=== PATIENT | male | born 1975 | race Caucasian/White ===

== ENCOUNTER 2016-08-06 09:49 | Inpatient (IN) | payer OTHER ==
[~2016-08-06] VITALS: Ht 193 cm; Wt 118.2 kg
[2016-08-06] MEDS ORDERED: ACTOS30 MG PO (10:22)
[2016-08-06] MEDS ORDERED: GLUCOPHAGE1000 MG PO (10:22)
[2016-08-06 10:57] LABS: ADJUSTED CALCIUM 9.1 mg/dL (8.4-10.2); ALBUMIN 4.3 gm/dL (3.5-5.0); BILIRUBIN,TOTAL 1.2 mg/dL (0.0-1.0); C-REACTIVE PROTEIN 4.7 mg/dL (0.0-0.9); CALCIUM 9.3 mg/dL (8.4-10.2); CREATININE, serum 0.85 mg/dL (0.66-1.25); POTASSIUM 4.2 mmol/L (3.4-5.0); TOTAL PROTEIN 7.2 gm/dL (6.4-8.2)
[2016-08-06 11:02] LABS: BASO % 0.5 % (0.0-2.0); EOS # 0.2 (0.0-0.7); EOS % 3.3 % (0-4.0); GRAN # 3.9 (1.4-6.5); GRAN % 61.2 % (42.2-75.2); HEMATOCRIT 41.6 % (42.0-52.0); HEMOGLOBIN 14.1 g/dl (13.5-18.0); LYMPH # 1.5 (1.2-3.4); MEAN CELL VOLUME 78 fl (80.0-100.0); MEAN CORPUSCULAR HEMOGLOBIN 26 pg (27.0-31.0); MEAN CORPUSCULAR HGB CONC 34 g/dl (33.0-37.0); MONO # 0.7 (0.1-0.6); MONO % 10.7 % (1.7-9.3); PLATELET COUNT 201 K/mm3 (130-400); RED BLOOD COUNT 5.34 M/mm3 (4.20-5.60); REDCELL DISTRIBUTION WIDTH-CV 12.6 % (11.5-14.5); WHITE BLOOD COUNT 6.4 K/mm3 (4.8-10.8)
[2016-08-06 21:10] VITALS: BP 126/77; PULSE 72; TEMP 98.1
[2016-08-07 01:30] VITALS: BP 107/63; PULSE 85; TEMP 97.7
[2016-08-07 06:39] VITALS: BP 123/73; PULSE 67; TEMP 98.2
[2016-08-07 09:00] VITALS: BP 126/84; PULSE 62; TEMP 97.8
[2016-08-07 14:40] VITALS: BP 122/73; PULSE 70; TEMP 98.3
[2016-08-07 17:36] VITALS: BP 121/72; PULSE 59; TEMP 98.4
[2016-08-07 22:00] VITALS: BP 129/80; PULSE 79; TEMP 97.8
[2016-08-08 04:38] VITALS: BP 100/58; PULSE 59; TEMP 97.5
[2016-08-08 07:52] LABS: BASO # 0.1 (0.0-0.2); EOS # 0.3 (0.0-0.7); GRAN # 2.7 (1.4-6.5); GRAN % 51.8 % (42.2-75.2); HEMATOCRIT 41.2 % (42.0-52.0); HEMOGLOBIN 13.5 g/dl (13.5-18.0); LYMPH # 1.7 (1.2-3.4); LYMPH % 32.8 % (20.0-51.0); MEAN CELL VOLUME 81 fl (80.0-100.0); MEAN CORPUSCULAR HEMOGLOBIN 26 pg (27.0-31.0); MEAN CORPUSCULAR HGB CONC 33 g/dl (33.0-37.0); MEAN PLATELET VOLUME 9.8 fl (7.4-10.4); MONO # 0.5 (0.1-0.6); MONO % 8.8 % (1.7-9.3); PLATELET COUNT 217 K/mm3 (130-400); RED BLOOD COUNT 5.12 M/mm3 (4.20-5.60); REDCELL DISTRIBUTION WIDTH-CV 12.7 % (11.5-14.5); WHITE BLOOD COUNT 5.2 K/mm3 (4.8-10.8)
[2016-08-08 08:08] LABS: C-REACTIVE PROTEIN 2.3 mg/dL (0.0-0.9); CREATININE, serum 0.94 mg/dL (0.66-1.25); POTASSIUM 4.5 mmol/L (3.4-5.0)
[2016-08-08 08:44] LABS: ADD PATHOLOGY DIFF REVIEW NO
[2016-08-08 10:02] VITALS: BP 119/75; PULSE 58; TEMP 98.1
[2016-08-08 13:40] LABS: BAND 2 % (0-10); EOSINOPHIL 4 % (0-4); NEUTROPHILS 53 % (42.0-75.2); PLATELET ESTIMATE NORMAL (NORMAL); TOTAL CELLS COUNTED 100
[2016-08-08 13:48] VITALS: BP 117/72; PULSE 55; TEMP 97.9
[2016-08-08 17:16] VITALS: BP 129/82; PULSE 64
[2016-08-08 22:01] VITALS: BP 109/71; PULSE 73; TEMP 98.2
[2016-08-09 05:24] VITALS: BP 106/69; PULSE 86; TEMP 98.3
[2016-08-09 07:11] LABS: HEMATOCRIT 41.3 % (42.0-52.0); HEMOGLOBIN 13.7 g/dl (13.5-18.0); MEAN CELL VOLUME 80 fl (80.0-100.0); MEAN CORPUSCULAR HEMOGLOBIN 27 pg (27.0-31.0); MEAN CORPUSCULAR HGB CONC 33 g/dl (33.0-37.0); MEAN PLATELET VOLUME 9.8 fl (7.4-10.4); PLATELET COUNT 224 K/mm3 (130-400); RED BLOOD COUNT 5.17 M/mm3 (4.20-5.60); REDCELL DISTRIBUTION WIDTH-CV 12.7 % (11.5-14.5); WHITE BLOOD COUNT 5.7 K/mm3 (4.8-10.8)
[2016-08-09 07:18] LABS: C-REACTIVE PROTEIN 1.6 mg/dL (0.0-0.9); CALCIUM 9.1 mg/dL (8.4-10.2); CREATININE, serum 0.83 mg/dL (0.66-1.25); POTASSIUM 4.4 mmol/L (3.4-5.0)
[2016-08-09 08:03] LABS: ADD PATHOLOGY DIFF REVIEW NO
[2016-08-09 10:00] VITALS: BP 117/68; PULSE 71; TEMP 97.7
[2016-08-09 10:40] LABS: BAND 5 % (0-10); EOSINOPHIL 5 % (0-4); NEUTROPHILS 54 % (42.0-75.2); PLATELET ESTIMATE NORMAL (NORMAL); TOTAL CELLS COUNTED 100
[2016-08-09] MEDS ORDERED: ROCEPHIN 2GM VIAL21 IV (11:40)
[2016-08-29] MEDS ORDERED: LEVEMIR100 U/ML SQ (09:58)
== END 2016-08-09 13:11 | disposition home or self-care (01) | DRG 638 ==
LOC: COL.ER 09:49 → SURG 12:22
PROVIDERS: Physician Assistant
PROC: 02HV33Z Insertion of Infusion Device into Superior Vena Cava, Percutaneous Approach (ICD-10-PCS; principal; 2016-08-08)
DX: E11.621 Type 2 diabetes mellitus with foot ulcer (principal); L03.116 Cellulitis of left lower limb; M86.9 Osteomyelitis, unspecified; E11.40 Type 2 diabetes mellitus with diabetic neuropathy, unspecified; E11.65 Type 2 diabetes mellitus with hyperglycemia; E11.69 Type 2 diabetes mellitus with other specified complication; F17.220 Nicotine dependence, chewing tobacco, uncomplicated; L97.521 Non-pressure chronic ulcer of other part of left foot limited to breakdown of skin; Z79.84 Long term (current) use of oral hypoglycemic drugs
CPT/HCPCS: 99222-AI; 99232-AI; 99239; A9585; C1751; C1894; J0696; J1644; J1650; J1815; J2543; J3370; J7040; J7050

== ENCOUNTER 2016-09-19 10:30 | Outpatient (RCR) | payer OTHER ==
[2016-08-10 10:27] VITALS: BP 118/72; PULSE 82; TEMP 97.8
[2016-08-11 08:40] VITALS: BP 110/71; PULSE 64; TEMP 97.9
[2016-08-12 08:09] VITALS: BP 121/71; PULSE 62; TEMP 97.2
[2016-08-13 10:00] VITALS: BP 115/79; PULSE 87; TEMP 98
[2016-08-14 10:13] VITALS: BP 109/74; PULSE 84; TEMP 98.1
[2016-08-15 10:36] VITALS: BP 108/66; PULSE 81; TEMP 98.3
[2016-08-16 10:00] VITALS: BP 108/70; PULSE 84; TEMP 97.6
[2016-08-16 10:19] LABS: HEMATOCRIT 41.5 % (42.0-52.0); HEMOGLOBIN 14.1 g/dl (13.5-18.0); MEAN CELL VOLUME 79 fl (80.0-100.0); MEAN CORPUSCULAR HEMOGLOBIN 27 pg (27.0-31.0); MEAN CORPUSCULAR HGB CONC 34 g/dl (33.0-37.0); PLATELET COUNT 191 K/mm3 (130-400); RED BLOOD COUNT 5.28 M/mm3 (4.20-5.60); REDCELL DISTRIBUTION WIDTH-CV 12.7 % (11.5-14.5); WHITE BLOOD COUNT 4.9 K/mm3 (4.8-10.8)
[2016-08-16 10:43] LABS: ADJUSTED CALCIUM 9.2 mg/dL (8.4-10.2); ALANINE AMINOTRANSFERASE 95 U/L (21-72); ALBUMIN 4.3 gm/dL (3.5-5.0); ALKALINE PHOSPHATASE 54 U/L (50-136); ANION GAP 15 mmol/L (7-16); BILIRUBIN,TOTAL 1.1 mg/dL (0.0-1.0); BLOOD UREA NITROGEN 17 mg/dL (9-20); CALCIUM 9.4 mg/dL (8.4-10.2); CARBON DIOXIDE 23 mmol/L (22-30); CHLORIDE 100 mmol/L (98-107); CREATININE, serum 0.86 mg/dL (0.66-1.25); GLUCOSE 160 mg/dL (74-106); POTASSIUM 4.4 mmol/L (3.4-5.0); SODIUM 138 mmol/L (137-145); TOTAL PROTEIN 7.5 gm/dL (6.4-8.2)
[2016-08-16 10:46] LABS: C-REACTIVE PROTEIN < 0.5 mg/dL (0.0-0.9)
[2016-08-16 11:23] LABS: ERYTHROCYTE SEDIMENTATION RATE 6 mm/hr (0-15)
[2016-08-17 10:21] VITALS: BP 112/68; PULSE 80; TEMP 98
[2016-08-18 08:07] VITALS: BP 113/74; PULSE 70; TEMP 97.4
[2016-08-19 08:19] VITALS: BP 118/79; PULSE 71; TEMP 97.4
[2016-08-20 09:55] VITALS: BP 123/74; PULSE 67; TEMP 97.4
[2016-08-21 10:01] VITALS: BP 105/66; PULSE 75; TEMP 97.9
[2016-08-23 10:08] VITALS: BP 105/66; PULSE 77; TEMP 98.6
[2016-08-23 10:21] LABS: HEMATOCRIT 40.8 % (42.0-52.0); HEMOGLOBIN 13.7 g/dl (13.5-18.0); MEAN CELL VOLUME 80 fl (80.0-100.0); MEAN CORPUSCULAR HEMOGLOBIN 27 pg (27.0-31.0); MEAN CORPUSCULAR HGB CONC 34 g/dl (33.0-37.0); MEAN PLATELET VOLUME 10.1 fl (7.4-10.4); PLATELET COUNT 175 K/mm3 (130-400); RED BLOOD COUNT 5.13 M/mm3 (4.20-5.60); REDCELL DISTRIBUTION WIDTH-CV 12.6 % (11.5-14.5); WHITE BLOOD COUNT 3.6 K/mm3 (4.8-10.8)
[2016-08-23 10:38] LABS: ADJUSTED CALCIUM 9.6 mg/dL (8.4-10.2); ALANINE AMINOTRANSFERASE 74 U/L (21-72); ALBUMIN 4.3 gm/dL (3.5-5.0); ALKALINE PHOSPHATASE 51 U/L (50-136); ANION GAP 12 mmol/L (7-16); BILIRUBIN,TOTAL 0.9 mg/dL (0.0-1.0); BLOOD UREA NITROGEN 17 mg/dL (9-20); CALCIUM 9.8 mg/dL (8.4-10.2); CARBON DIOXIDE 25 mmol/L (22-30); CHLORIDE 101 mmol/L (98-107); CREATININE, serum 0.84 mg/dL (0.66-1.25); GLUCOSE 177 mg/dL (74-106); POTASSIUM 4.3 mmol/L (3.4-5.0); SODIUM 138 mmol/L (137-145); TOTAL PROTEIN 7.2 gm/dL (6.4-8.2)
[2016-08-23 10:41] LABS: C-REACTIVE PROTEIN < 0.5 mg/dL (0.0-0.9)
[2016-08-23 11:17] LABS: ERYTHROCYTE SEDIMENTATION RATE 8 mm/hr (0-15)
[2016-08-24 09:43] VITALS: BP 117/67; PULSE 69; TEMP 98.4
[2016-08-25 07:37] VITALS: BP 128/72; PULSE 74; TEMP 97.8
[2016-08-26 07:34] VITALS: BP 124/79; PULSE 85; TEMP 97.9
[2016-08-27 10:14] VITALS: BP 110/70; PULSE 84; TEMP 98.5
[2016-08-28 09:58] VITALS: BP 115/73; PULSE 78; TEMP 98.3
[2016-08-29 10:01] VITALS: BP 103/70; PULSE 86; TEMP 98.3
[2016-08-30 10:30] VITALS: BP 134/80; PULSE 84; TEMP 97.6
[2016-08-30 11:00] LABS: BASO % 1.2 % (0.0-2.0); EOS # 0.2 (0.0-0.7); EOS % 7.1 % (0-4.0); GRAN # 1.1 (1.4-6.5); GRAN % 42.7 % (42.2-75.2); HEMATOCRIT 38.7 % (42.0-52.0); LYMPH # 0.9 (1.2-3.4); MEAN CELL VOLUME 79 fl (80.0-100.0); MEAN CORPUSCULAR HEMOGLOBIN 27 pg (27.0-31.0); MEAN CORPUSCULAR HGB CONC 34 g/dl (33.0-37.0); MEAN PLATELET VOLUME 9.9 fl (7.4-10.4); MONO # 0.3 (0.1-0.6); MONO % 12.6 % (1.7-9.3); PLATELET COUNT 172 K/mm3 (130-400); RED BLOOD COUNT 4.88 M/mm3 (4.20-5.60); REDCELL DISTRIBUTION WIDTH-CV 12.8 % (11.5-14.5); WHITE BLOOD COUNT 2.5 K/mm3 (4.8-10.8)
[2016-08-30 11:05] LABS: ADJUSTED CALCIUM 8.9 mg/dL (8.4-10.2); ALANINE AMINOTRANSFERASE 74 U/L (21-72); ALBUMIN 4.1 gm/dL (3.5-5.0); ALKALINE PHOSPHATASE 53 U/L (50-136); ANION GAP 12 mmol/L (7-16); BILIRUBIN,TOTAL 0.9 mg/dL (0.0-1.0); BLOOD UREA NITROGEN 17 mg/dL (9-20); CARBON DIOXIDE 24 mmol/L (22-30); CHLORIDE 101 mmol/L (98-107); CREATININE, serum 0.84 mg/dL (0.66-1.25); GLUCOSE 105 mg/dL (74-106); POTASSIUM 4.2 mmol/L (3.4-5.0); SODIUM 138 mmol/L (137-145)
[2016-08-30 11:08] LABS: C-REACTIVE PROTEIN < 0.5 mg/dL (0.0-0.9)
[2016-08-31 10:24] VITALS: BP 119/73; PULSE 77; TEMP 98
[2016-09-01 07:45] VITALS: BP 115/70; PULSE 75; TEMP 97.6
[2016-09-02 07:36] VITALS: BP 107/68; PULSE 57
[2016-09-03 10:02] VITALS: BP 119/68; PULSE 74; TEMP 98.5
[2016-09-04 06:35] VITALS: BP 109/69; PULSE 75; TEMP 97.4
[2016-09-05 09:55] VITALS: BP 108/69; PULSE 60
[2016-09-06 09:59] VITALS: BP 122/72; PULSE 77; TEMP 97.5
[2016-09-06 10:12] LABS: HEMATOCRIT 40.4 % (42.0-52.0); HEMOGLOBIN 13.4 g/dl (13.5-18.0); MEAN CELL VOLUME 80 fl (80.0-100.0); MEAN CORPUSCULAR HEMOGLOBIN 27 pg (27.0-31.0); MEAN CORPUSCULAR HGB CONC 33 g/dl (33.0-37.0); MEAN PLATELET VOLUME 9.9 fl (7.4-10.4); PLATELET COUNT 190 K/mm3 (130-400); RED BLOOD COUNT 5.04 M/mm3 (4.20-5.60); REDCELL DISTRIBUTION WIDTH-CV 12.7 % (11.5-14.5); WHITE BLOOD COUNT 3.8 K/mm3 (4.8-10.8)
[2016-09-06 10:43] LABS: ADJUSTED CALCIUM 8.7 mg/dL (8.4-10.2); ALANINE AMINOTRANSFERASE 79 U/L (21-72); ALBUMIN 4.3 gm/dL (3.5-5.0); ALKALINE PHOSPHATASE 55 U/L (50-136); ANION GAP 12 mmol/L (7-16); BILIRUBIN,TOTAL 0.8 mg/dL (0.0-1.0); BLOOD UREA NITROGEN 18 mg/dL (9-20); C-REACTIVE PROTEIN < 0.5 mg/dL (0.0-0.9); CALCIUM 8.9 mg/dL (8.4-10.2); CARBON DIOXIDE 24 mmol/L (22-30); CHLORIDE 98 mmol/L (98-107); CREATININE, serum 0.77 mg/dL (0.66-1.25); GLUCOSE 202 mg/dL (74-106); POTASSIUM 4.4 mmol/L (3.4-5.0); SODIUM 134 mmol/L (137-145); TOTAL PROTEIN 7.1 gm/dL (6.4-8.2)
[2016-09-06 11:55] LABS: ERYTHROCYTE SEDIMENTATION RATE 6 mm/hr (0-15)
[2016-09-07 08:00] VITALS: BP 116/75; PULSE 74; TEMP 98.4
[2016-09-08 07:24] VITALS: BP 111/66; PULSE 63; TEMP 97.7
[2016-09-17 09:09] VITALS: BP 113/71; PULSE 72; TEMP 97.6
[2016-09-18 10:42] VITALS: BP 118/76; PULSE 86; TEMP 97.4
[~2016-09-19] VITALS: Ht 193 cm; Wt 118.2 kg
[~2016-09-19 10:30] MED LIST: ACTOS30 MG PO; GLUCOPHAGE1000 MG PO; LEVEMIR100 U/ML SQ; ROCEPHIN 2GM VIAL21 IV
== END 2016-09-19 12:51 | disposition home or self-care (01) ==
LOC: EUO 10:30
PROVIDERS: Internal Medicine; Internal Medicine Infectious Disease
DX: M86.9 Osteomyelitis, unspecified (principal); E11.69 Type 2 diabetes mellitus with other specified complication
CPT/HCPCS: J0696; J1644